=== PATIENT | male | born 1990 | race Caucasian/White ===

== ENCOUNTER 2019-11-09 18:17 | Emergency (ER) | payer BC ==
[~2019-11-09] VITALS: Ht 185.4 cm; Wt 99.8 kg
[2019-11-09 18:19] VITALS: BP 150/80
--- NOTE | 2019-11-09 18:27 | NUR ---
er at bedside for eval
[2019-11-09] MEDS ORDERED: NITROGLYCERIN 0.4 MG TAB SL ONE (18:30)
--- NOTE | 2019-11-09 18:36 | NUR ---
Katheryn ceja in EDM - 11/09/19 at 1848 by YOANNA PT ADMITS KNOWN TO HAVE KIDNEY STONES--SEEN THIS AM SAME COMPLAINT 0F FLANK PAIN, RIGHT INGUINAL PAIN ---PT ADDS UNABLE TO FILL HIS RX PERCOCETS AND PAIN HAS GOTTEN WORSE TO A POINT HE IS VOMITING BLOOD NOW--ALL DAY TODAY AFTER DC APPEAR JITTERY, UNABL TO STAY STILL IN [facility]
--- NOTE | 2019-11-09 18:36 | NUR ---
C/O THROAT PAIN IF HAS A FOOD PARTICLE LODGED IN THROAT---FULL CLEAR SPEECH, NO DROOLING, OR MUFFLED VOICE---SITTING UPRIGHT NO GRIMACE OR ACCESSORY MUSCLE USE NOTED AT THIS TIME
--- NOTE | 2019-11-09 19:12 | NUR ---
RECIEVED REPORT FROM JONH BAERD. TRANSFER OF CARE AT THIS TIME.
--- NOTE | 2019-11-09 19:13 | NUR ---
PT STATES HE STILL FEELS LIKE THERE IS SOMETHING STUCK IN HIS THROAT. PT REPORTS EATING TRITIP EARLIER TODAY AND THAT IS WHAT IS STUCK IN HIS THROAT. ERMD MADE AWARE.
[2019-11-09] MEDS ORDERED: GLUCAGON 1 MG VIAL IVP ONE (19:15)
[2019-11-09] MEDS ORDERED: METOCLOPRAMIDE 10 MG/2 ML INJ VIAL IVP ONE (19:15)
--- NOTE | 2019-11-09 19:20 | NUR ---
PT STATES HE "ALWAYS PASSES OUT EVERYTIME HE GETS AN IV, BLOOD DRAWN, OR SEES A NEEDLE." PT AGREED FOR ME TO PLACE IV, PT PLACED ON CARDIAC MONTITOR/PULSE OX BEFORE IV PLACEMENT. COLD WASH CLOTHS PROVIDED AND PLACED ON PTS NECK/COVERING EYES. PT TOLERATED PRCEDURE WELL. PT REMAINED CONSCIOUS DURING AND POST IV PLACEMENT.
[2019-11-09 19:30] LABS: BASOPHILS # (AUTO) 0.1 K/uL (0.00-0.22); BASOPHILS % (AUTO) 1.2 % (0.0-2.0); EOSINOPHILS # (AUTO) 0.6 K/uL (0-0.4); EOSINOPHILS % (AUTO) 6.5 % (0.0-4.0); HEMATOCRIT 47.9 % (36-52); HEMOGLOBIN 16.6 g/dL (12.0-18.0); LYMPHOCYTES # (AUTO) 1.8 K/uL (2.0-11.5); MEAN CORPUSCULAR HEMOGLOBIN 29 pg (27-31); MEAN CORPUSCULAR HGB CONC 35 g/dL (33-37); MONOCYTES # (AUTO) 0.8 K/uL (0.8-1.0); MONOCYTES % (AUTO) 8.2 % (1.7-9.3); NEUTROPHILS % (AUTO) 65.1 % (42.2-75.2); PLATELET COUNT (AUTO) 266 K/uL (140-450); RED BLOOD CELL COUNT(AUTO) 5.76 MIL/uL (4.20-6.10); RED CELL DISTRIBUTION WIDTH 13.2 % (11.6-13.7); WHITE BLOOD COUNT (AUTO) 9.3 K/uL (4.8-10.8)
--- NOTE | 2019-11-09 19:37 | NUR ---
XRAY AT BEDSIDE
[2019-11-09 19:38] LABS: ANION GAP 16.4 (8-16); CARBON DIOXIDE 27.8 mmol/L (21-32); CREATININE 1.1 mg/dL (0.6-1.3); POTASSIUM 3.2 mmol/L (3.5-5.1)
--- NOTE | 2019-11-09 20:56 | NUR ---
SPOKE TO PTS JESUSITA TO GIVE UPDATE ON PLAN OF CARE. MADE AWARE OF PLAN TO TRANSFER PT.
--- NOTE | 2019-11-09 21:12 | NUR ---
CALLED [facility] TO GIVE REPORT FOR PT. SPOKE TO DANIEL WHO TOLD ME TO CALL BACK IN 7 MINUTES BECAUSE NURSE HOSPITAL MANAGER ROJAS WAS ON ANOTHER LINE. Addendum: 11/09/19 at 2142 by [email or web address] CALLED [facility] TO GIVE REPORT FOR PT. SPOKE TO DANIEL WHO TOLD ME TO CALL BACK IN 7 MINUTES BECAUSE NURSE HOSPITAL MANAGER ROJAS WAS ON ANOTHER LINE.
--- NOTE | 2019-11-09 21:24 | NUR ---
REPORT GIVEN TO JONH XIE AT [facility]. ALL QUESTIONS ANSWERED. ETA OF TRANSFER GIVEN TO NURSE.
[2019-11-09 21:35] VITALS: BP 129/69
--- NOTE | 2019-11-09 21:35 | NUR ---
Patient to be transferred to [facility]. Is being transferred due to HIGHER LEVEL OF CARE. Receiving facility has accepting physician and available space. ER physician has signed transfer form. Patient or responsible democrat has agreed to transfer and signed form. Patient belongings inventoried and will be sent with patient. Copy of nursing notes, lab reports, EKG, Physicians Orders and X-rays to be sent with patient. Report called to JONH XIE at receiving facility.
== END 2019-11-09 21:35 | disposition short-term general hospital (02) ==
LOC: MED 18:17
DX: T18.128A Food in esophagus causing other injury, initial encounter (principal); Z91.018 Allergy to other foods
CPT/HCPCS: 36415; 71045; 80048; 85025; 93005; 96374; 96375; 99285; J1610; J2765; Q0092